=== PATIENT | male | born 1965 | race Caucasian/White ===

== ENCOUNTER → 2024-05-03 06:25 | Outpatient (REF) | payer OTHER, SELFPAY ==
[2024-05-03 07:35] LABS: % Eosinophils 6.1 % (0-6); % Immature Granulocytes 0.6 % (0-0.5); % Lymphocytes 25.6 % (20.5-51.1); % Neutrophils 50.7 % (42.2-75.2); Absolute Basophils 0.1 10^3/uL (0-0.2); Absolute Eosinophils 0.3 10^3/uL (0-0.7); Absolute Lymphocytes 1.3 10^3/uL (1.2-3.4); Absolute Monocytes 0.8 10^3/uL (0.1-0.6); Absolute Neutrophils 2.5 10^3/uL (1.4-6.5); Hematocrit 52.2 % (39.0-52.0); Hemoglobin 17.5 g/dL (13.0-18.0); Mean Corp Hgb Conc. 33.5 g/dL (33.0-37.0); Mean Corpuscular Hgb 30.1 pg (27.0-31.0); Mean Corpuscular Volume 89.8 fL (80.0-94.0); Mean Platelet Volume 9.6 fL (7.4-10.4); Nucleated Red Blood Cells % 0 % (-); Platelet Count 193 10^3/uL (130-400); Red Blood Cell Count 5.81 10^6/uL (4.70-6.10); Red Cell Dist. Width 12.3 % (11.5-14.5); White Blood Cell Count 4.9 10^3/uL (4.8-10.8)
[2024-05-03 08:10] LABS: ALT (SGPT) 50 U/L (0-50); AST (SGOT) 34 U/L (17-59); Albumin 4.4 g/dl (3.5-5.0); Alkaline Phosphatase 60 U/L (38-126); Blood Urea Nitrogen 23 mg/dl (9-20); Calcium 9.7 mg/dl (8.4-10.2); Carbon Dioxide 31 mmol/L (22-30); Chloride 99 mmol/L (98-107); Glucose 85 mg/dl (70-99); HDL Cholesterol 38 mg/dl; LDL Cholesterol, Calculated 160 mg/dl; Potassium 4.8 mmol/L (3.5-5.1); Sodium 141 mmol/L (135-145); Total Bilirubin 0.7 mg/dl (0.2-1.3); Total Cholesterol 227 mg/dl (50-199); Total Protein 7.3 g/dl (6.3-8.2); Triglyceride 149 mg/dl (10-149); Very Low Density Lipoprotein 29 mg/dl (0-30); eGFR > 60.00
[2024-05-03 08:30] LABS: TSH Reflex To Free T4 2.25 uIU/ml (0.47-4.68)
[2024-05-03 20:58] LABS: Hepatitis C Antibody Negative (Negative)
== END ==
LOC: REG 06:25
PROVIDERS: ATTENDING PHYSICIAN Family Medicine
DX: Z00.00 Encounter for general adult medical examination without abnormal findings (principal); E78.9 Disorder of lipoprotein metabolism, unspecified; E03.9 Hypothyroidism, unspecified
CPT/HCPCS: 36415; 80053; 80061; 84443; 85025; 86803

== ENCOUNTER 2024-05-05 10:25 | Emergency (ER) | payer OTHER, SELFPAY ==
[2024-05-05 10:50] VITALS: BP 188/76
[2024-05-05 11:09] VITALS: BMI 30.6
[2024-05-05 11:13] VITALS: BP 98/71
[2024-05-05 11:31] LABS: % Basophils 0.7 % (0-2); % Immature Granulocytes 0.4 % (0-0.5); % Lymphocytes 16.1 % (20.5-51.1); % Monocytes 12.4 % (1.7-9.3); % Neutrophils 65.4 % (42.2-75.2); Absolute Basophils 0.1 10^3/uL (0-0.2); Absolute Eosinophils 0.4 10^3/uL (0-0.7); Absolute Lymphocytes 1.2 10^3/uL (1.2-3.4); Absolute Monocytes 0.9 10^3/uL (0.1-0.6); Hematocrit 51.9 % (39.0-52.0); Hemoglobin 18.2 g/dL (13.0-18.0); Mean Corp Hgb Conc. 35.1 g/dL (33.0-37.0); Mean Corpuscular Hgb 30.5 pg (27.0-31.0); Mean Corpuscular Volume 86.9 fL (80.0-94.0); Mean Platelet Volume 9.5 fL (7.4-10.4); Nucleated Red Blood Cells % 0 % (-); Platelet Count 202 10^3/uL (130-400); Red Blood Cell Count 5.97 10^6/uL (4.70-6.10); Red Cell Dist. Width 12.3 % (11.5-14.5); White Blood Cell Count 7.6 10^3/uL (4.8-10.8)
[2024-05-05 11:52] LABS: Troponin I < 0.012 ng/ml
--- NOTE | 2024-05-05 11:56 | ED.GENMED ---
History of Present Illness
General
Chief Complaint: Fainting Sensation
Source: patient
Time Seen by Provider: 05/05/24 11:43
History of Present Illness
History of Present Illness:
58-year-old gentleman presents to the emergency room complaining of of having a near syncopal episode. Patient was at an urgent care where an injury to his left finger was being addressed. They were gluing his finger and during that procedure he
began to feel lightheaded and as if he might pass out. Patient did not lose consciousness. Staff at urgent care sent him to the emergency room for evaluation because he also has a history of atrial fibrillation and recently has been back in A-fib.
Patient is followed by Dr. Soria. Dr. Soria started the patient on carvedilol and Eliquis. Plan is for cardiology follows up in the near future for possible ELVA and cardioversion. Patient does have a implanted defibrillator because he had
cardiomyopathy in the past secondary to uncontrolled A-fib.
Past History
Past History
ED Past Medical History: Arrthythmia (Atrial fib), CHF, Other (Nonischemic cardiomyopathy) and Other (History of atrial fibrillation and ventricular tachycardia); Negative CAD
ED Past Surgical History: Cardiac (/pacer/Defibulator)
Social History
Tobacco: Smoker (Cigar)
Alcohol: Occasional
Drug: None
Personal:
Living: with family
Employment: Employed
Family History
Family History: Hypertension
Phy Exam
Physical Exam
Physical Exam:
General: Awake, Alert, Oriented X3. No acute distress.
Vitals: Mildly tachycardic
Head: Atraumatic
Eyes: Pupils equal, EOMI
Throat: Airway intact, no exudates
Neck: Trachea midline
Lungs: Clear and equal b/l
Heart: irregular rate, no murmurs
Abd: Soft, Nontender, No pulsatile mass
Neuro: Nonfocal
Skin: Warm, dry, no rash
Extremities: pulses equal b/l, no edema
Course
Orders/Labs/Results
Orders:
Orders
05/05/24 10:54
ECG [Electrocardiogram (*1)] Urgent
Reason for Study: Atrial Fibrillation
EKG- Treatment ONCE
05/05/24 11:20
Complete Blood Count/With Diff Urgent
Troponin I Urgent
05/05/24 12:03
BMP [Basic Metabolic Panel] Urgent
Abnormal Lab Results
05/05/24
11:20
Hgb 18.2 H g/dL
(13.0-18.0)
Absolute Monos (auto) 0.9 H 10^3/uL
(0.1-0.6)
Lymphocytes % 16.1 L %
(20.5-51.1)
Monocytes % 12.4 H %
(1.7-9.3)
05/05/24 11:20
05/05/24 12:03
Vital Signs
Initial and Last Documented VS:
Initial Vital Signs
Temp Pulse Resp BP Pulse Ox
98.0 F 63 20 188/76 97
05/05/24 10:50 05/05/24 10:50 05/05/24 10:50 05/05/24 10:50 05/05/24 10:50
Last Documented Vital Signs
Temp Pulse Resp BP Pulse Ox
98.0 F 116 13 110/89 97
05/05/24 10:50 05/05/24 13:54 05/05/24 13:54 05/05/24 13:54 05/05/24 13:54
MDM/Problems Addressed
Differential Diagnosis Includes:
Dysrhythmia, vasovagal event, anemia
MDM/Problems Addressed:
Patient presents after an episode at urgent care while holding his finger dairy. His labs are unremarkable. Patient's EKG shows no acute ischemic changes. We interrogated his defibrillator which shows nonsustained V. tach but no dysrhythmias
requiring treatment. Patient already has an appointment with cardiology has he is currently in A-fib. Patient is known to Dr. Soria. Patient's ventricular rate is well-controlled. Believe the A-fib was likely related to his episode today as
the contact seems highly suggestive of a vasovagal event.
*Pulse Oximetry
Patient hypoxic: no
*EKG
Interpreted by ED Provider?: Yes
Interpretation: abnormal
Heart Rate: 95
Rate: normal
Rhythm: a-fib
QRS Pattern: normal QRS
Ischemia: no ischemia
*Assembly Adjuster Interpretation
Rate: normal
Interpretation: abnormal
Rhythm: a-fib
*Critical Care Note
Total Time (30-74mins, 75-104mins- exclusive of procedures): Not Applicable
ED Attending Note
-
Portions of this chart may have been created with voice recognition software.� Occasional wrong word or��sound alike� substitutions may have occurred due to the inherent limitations of voice recognition software.
Discharge Plan
Departure
Patient Disposition: Home (Routine Discharge)
Date of Disposition: 05/05/24
Time of Disposition: 13:57
Patient with high blood pressure during this ER visit?: No
Condition: Good
Discharge Problem:
Near syncope
Instructions: Near Fainting (DC)
Prescriptions:
No Action
carvedilol 12.5 MG tablet
12.5 mg PO BID
lisinopril 2.5 MG tablet
2.5 mg PO DAILY
aspirin [Gaurav Chewable Aspirin] 81 MG tablet,chewable
81 mg PO DAILY
prednisone 10 MG tablet
10 mg PO .TAPER Qty: 30 0RF
Rx Instructions:
Take 40mg daily x3days, 30mg daily x3days,
20mg daily x3days, 10mg daily x3days.
diazepam 5 MG tablet
5 mg PO TIDPRN PRN (Reason: spasm pain) Qty: 15 0RF
amiodarone [Pacerone] 200 MG tablet
200 mg PO BID Qty: 60 0RF
Rx Instructions:
FILL FIRST. Please take amiodarone 200mg twice daily for 30 days then decrease to 200mg daily!
amiodarone [Pacerone] 200 MG tablet
200 mg PO DAILY Qty: 30 3RF
Rx Instructions:
FILL SECOND. Please take amiodarone 200mg twice daily for 30 days then decrease to 200mg daily!
Referrals:
Shan Sanders MD [Family Provider] -
Activity Restrictions/Additional Instructions:
Your vital signs here in the emergent have been normal. Your labs are unremarkable. The interrogation of your device shows no serious heart rhythm cause your event today. However the device does show that you have a fair amount of extra
ventricular beats. There may be nothing to do about this but you should follow-up with your stock clipper as scheduled to discuss.
Interventions
Interventions:
*Risk Screen - Suicide Last Done: 05/05/24 11:09
*General Assessment Last Done: 05/05/24 10:50
*Neglect/Abuse Screening Last Done: 05/05/24 11:09
ED- Fall Risk Assessment Last Done: 05/05/24 11:09
*ED COVID-19 Vaccine History Last Done: 05/05/24 11:09
*Nursing Disposition Last Done: 05/05/24 14:10
ED- Cardiac Assessment Last Done: 05/05/24 11:09
ED- Neurological Assessment Last Done: 05/05/24 11:09
Discharge Date and Time
Discharge Date/Time: 05/05/24 14:11
Print Language: KHMER
[2024-05-05 12:30] VITALS: BP 109/78
[2024-05-05 12:53] LABS: Blood Urea Nitrogen 19 mg/dl (9-20); Calcium 9.7 mg/dl (8.4-10.2); Carbon Dioxide 26 mmol/L (22-30); Chloride 102 mmol/L (98-107); Estimated Creatinine Clearance 101 ml/min; Glucose 99 mg/dl (70-99); Sodium 136 mmol/L (135-145); eGFR > 60.00
[2024-05-05 13:00] VITALS: BP 113/87
[2024-05-05 13:54] VITALS: BP 110/89
== END 2024-05-05 14:11 | disposition home or self-care (01) ==
LOC: EMR 10:25
PROVIDERS: EMERGENCY PHYSICIAN Emergency Medicine; FAMILY PHYSICIAN Family Medicine
DX: R55 Syncope and collapse (principal); I48.91 Unspecified atrial fibrillation; I50.9 Heart failure, unspecified; Z95.810 Presence of automatic (implantable) cardiac defibrillator; F17.290 Nicotine dependence, other tobacco product, uncomplicated; I42.8 Other cardiomyopathies; Z79.01 Long term (current) use of anticoagulants
CPT/HCPCS: 99284; 80048; 84484; 85025; 93005

== ENCOUNTER 2024-05-08 07:49 | Day surgery (SDC) | payer OTHER, SELFPAY ==
--- NOTE | 2024-05-08 09:35 | ITS.CL.CARDI ---
Religion Professor - Cardioversion
Cardioversion
Procedure Report:
Date of Procedure: May 08 2024
Procedure: Cardioversion
Indication: Symptomatic atrial fibrillation
Performing Physician: Jose Denis DO, FACC
Technique: The patient was brought to the holding area. Signed informed consent was obtained. A time out was called and performed. The patient was anesthetized by the anesthesia service. Anticoagulation status was reviewed and appropriate. R2 pads
were placed anteriorly and posteriorly. A 225 J synchronized biphasic shock restored normal sinus rhythm without significant bradycardia. There were no complications. Device interrogated post cardioversion with normal function of the device.
Conclusion: Uncomplicated cardioversion from atrial fibrillation to sinus rhythm.
Recommendation: Routine post cardioversion care. Continue buttermaker anticoagulation.
== END 2024-05-08 10:11 | disposition home or self-care (01) ==
LOC: CATH 07:49
PROVIDERS: ATTENDING PHYSICIAN Nuclear Medicine Nuclear Cardiology; FAMILY PHYSICIAN Family Medicine; OTHER PHYSICIAN Internal Medicine Cardiovascular Disease
DX: I48.91 Unspecified atrial fibrillation (principal); I50.9 Heart failure, unspecified; I42.8 Other cardiomyopathies; Z72.0 Tobacco use; Z79.82 Long term (current) use of aspirin; Z79.01 Long term (current) use of anticoagulants
CPT/HCPCS: 92960; 93005

== ENCOUNTER 2024-08-17 10:18 | Day surgery (SDC) | payer OTHER, SELFPAY ==
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
[2024-08-13 09:19] VITALS: BMI 30.2
[2024-08-13 09:48] LABS: % Basophils 0.6 % (0-2); % Eosinophils 2.7 % (0-6); % Immature Granulocytes 0.4 % (0-0.5); % Monocytes 10.7 % (1.7-9.3); % Neutrophils 68.6 % (42.2-75.2); Absolute Basophils 0.1 10^3/uL (0-0.2); Absolute Eosinophils 0.2 10^3/uL (0-0.7); Absolute Lymphocytes 1.3 10^3/uL (1.2-3.4); Absolute Monocytes 0.8 10^3/uL (0.1-0.6); Absolute Neutrophils 5.3 10^3/uL (1.4-6.5); Hematocrit 52.6 % (39.0-52.0); Mean Corp Hgb Conc. 34.2 g/dL (33.0-37.0); Mean Corpuscular Hgb 31.4 pg (27.0-31.0); Mean Corpuscular Volume 91.8 fL (80.0-94.0); Mean Platelet Volume 9.4 fL (7.4-10.4); Nucleated Red Blood Cells % 0 % (-); Platelet Count 179 10^3/uL (130-400); Red Blood Cell Count 5.73 10^6/uL (4.70-6.10); White Blood Cell Count 7.8 10^3/uL (4.8-10.8)
[2024-08-13 10:14] LABS: ALT (SGPT) 41 U/L (0-50); AST (SGOT) 31 U/L (17-59); Albumin 4.4 g/dl (3.5-5.0); Alkaline Phosphatase 73 U/L (38-126); Blood Urea Nitrogen 21 mg/dl (9-20); Calcium 9.8 mg/dl (8.4-10.2); Carbon Dioxide 33 mmol/L (22-30); Chloride 96 mmol/L (98-107); Estimated Creatinine Clearance 91 ml/min; Glucose 85 mg/dl (70-99); Potassium 4.8 mmol/L (3.5-5.1); Sodium 137 mmol/L (135-145); Total Bilirubin 0.7 mg/dl (0.2-1.3); Total Protein 7.7 g/dl (6.3-8.2); eGFR > 60.00
[2024-08-17] VITALS (7 sets, daily range): BP systolic 116–136; BP diastolic 79–96; BMI 30.1
--- NOTE | 2024-08-17 11:10 | W.ICD.CONTRA ---
Post ICD/TAKER OFF DRYING KILN-D
-
History of OR?: No
LV Function
Left ventricular function study result?: Ejection Fraction >/= 40%
ACEI/ARB/ARNI
Patient already on ACEI/ARB/ARNI: Yes
Beta-Tammi
Patient already on Beta Tammi: Yes
--- NOTE | 2024-08-17 14:07 | ITS.CL.ICD ---
Longitudinal Float Operator - ICD
Implantable Cardioverter Defibrillator
Procedure Report:
Date of Procedure: August 17, 2024
Patient : 1965
Procedures: Dual-chamber ICD generator change
Indication: Secondary prevention device in a patient with sustained ventricular tachycardia at initial implant
Implants:
Pulse Generator: [employer]; Model# D233; Serial#[id number] implanted today
Atrial Lead: [employer]: Model# 4469; Serial# [id number] implanted 2011
Right Ventricular Lead: [employer]; Model# 0296; Serial# [id number] implanted 2011
Explants:
[employer] model E162 serial #[id number] implanted 2011 for normal battery depletion
Technique: The patient was prepped and draped in the usual fashion. The patient since implant got tattoos around the device circumferentially and we discussed performing an incision in the central area that did not have skin tattoos. Local
anesthetic was applied to the left prepectoral subcutaneous tissue. A 4 inch incision was made. The subcutaneous pocket was entered and revised to see the device more inferiorly and laterally.. Hemostasis was excellent. The chronic generator was
identified and removed from the pocket and disconnected from the chronic leads and removed from the field. The new generator was brought to the field and connected to the chronic leads and was tied to the pectoral floor of the pocket.. The leads
were appropriately attached to the device. The pocket was irrigated with antibiotic solution. The device and leads were placed in the pocket and the device was secured to pectoralis muscle and facia. The incision was closed with absorbable sutures.
The estimated blood loss was minimal. There were no complications. Device based testing was performed as described below. IV contrast total: 0 cc.
System Analysis:
RA lead: P: 5.4 mV; Threshold: 0.7 V @ 0.5 ms; Impedance: 486 ohms.
RV lead: R: 16.9 mV; Threshold: 1.1 V @ 0.5 ms; Impedance: 426 ohms.
Final Programming: Tachy: VT/VF:185 in the monitor at 155 bpm; Ryan: AAI with VVI backup 40
Conclusion: Uncomplicated dual-chamber ICD generator change
Recommendation: Routine post ICD care
cc: Dr. Thomas Torres
== END 2024-08-17 15:10 | disposition home or self-care (01) ==
LOC: CATH 10:18
PROVIDERS: ATTENDING PHYSICIAN Internal Medicine Cardiovascular Disease; FAMILY PHYSICIAN Family Medicine
DX: Z45.02 Encounter for adjustment and management of automatic implantable cardiac defibrillator (principal); I47.20 Ventricular tachycardia, unspecified; I48.0 Paroxysmal atrial fibrillation; I47.19 Other supraventricular tachycardia; I07.1 Rheumatic tricuspid insufficiency; I42.9 Cardiomyopathy, unspecified; M19.90 Unspecified osteoarthritis, unspecified site; F41.9 Anxiety disorder, unspecified; G47.00 Insomnia, unspecified; Z68.30 Body mass index [BMI] 30.0-30.9, adult
CPT/HCPCS: 33263; 36415; 80053; 85025; 93005; C1721

== ENCOUNTER → 2024-09-22 07:44 | Outpatient (REF) | payer OTHER, SELFPAY ==
[2024-09-22 08:43] LABS: % Eosinophils 6.9 % (0-6); % Lymphocytes 27.8 % (20.5-51.1); % Monocytes 15.4 % (1.7-9.3); % Neutrophils 47.9 % (42.2-75.2); Absolute Basophils 0.1 10^3/uL (0-0.2); Absolute Eosinophils 0.4 10^3/uL (0-0.7); Absolute Immature Granulocytes 0.1 10^3/uL (0-0.05); Absolute Lymphocytes 1.4 10^3/uL (1.2-3.4); Absolute Monocytes 0.8 10^3/uL (0.1-0.6); Absolute Neutrophils 2.4 10^3/uL (1.4-6.5); Hemoglobin 17.3 g/dL (13.0-18.0); Mean Corp Hgb Conc. 34.6 g/dL (33.0-37.0); Mean Corpuscular Hgb 31.5 pg (27.0-31.0); Mean Corpuscular Volume 91.1 fL (80.0-94.0); Mean Platelet Volume 9.5 fL (7.4-10.4); Nucleated Red Blood Cells % 0 % (-); Platelet Count 181 10^3/uL (130-400); Red Blood Cell Count 5.49 10^6/uL (4.70-6.10); Red Cell Dist. Width 12.9 % (11.5-14.5); Reticulocyte Count 1.7 % (0.4-2.8); White Blood Cell Count 5.1 10^3/uL (4.8-10.8)
[2024-09-22 09:08] LABS: ALT (SGPT) 47 U/L (0-50); AST (SGOT) 34 U/L (17-59); Albumin 4.6 g/dl (3.5-5.0); Alkaline Phosphatase 74 U/L (38-126); Blood Urea Nitrogen 30 mg/dl (9-20); Calcium 9.6 mg/dl (8.4-10.2); Carbon Dioxide 30 mmol/L (22-30); Chloride 99 mmol/L (98-107); Glucose 85 mg/dl (70-99); Magnesium 2.1 mg/dl (1.6-2.3); Potassium 5.1 mmol/L (3.5-5.1); Sodium 136 mmol/L (135-145); Total Bilirubin 0.9 mg/dl (0.2-1.3); Total Protein 7.5 g/dl (6.3-8.2); eGFR > 60.00
[2024-09-22 09:17] LABS: Total Iron Binding Capacity 300 ug/dl (261-462)
[2024-09-22 09:18] LABS: Vitamin D, 25-OH*** 66.5 ng/mL (30-80)
[2024-09-22 09:32] LABS: TSH Reflex To Free T4 2.35 uIU/ml (0.47-4.68)
[2024-09-22 10:08] LABS: Folate 18.6 ng/ml (2.76-20); Vitamin B12 > 1000 pg/ml (239-931)
== END ==
LOC: REG 07:44
PROVIDERS: ATTENDING PHYSICIAN Nurse Practitioner Primary Care; FAMILY PHYSICIAN Family Medicine
DX: R53.83 Other fatigue (principal)
CPT/HCPCS: 36415; 80053; 82306; 82607; 82728; 82746; 83550; 83735; 84443; 85025; 85045

== ENCOUNTER 2024-11-16 06:20 | Day surgery (SDC) | payer OTHER, SELFPAY | END 2024-11-16 09:48 | disposition home or self-care (01) | LOC: GI 06:20 | PROVIDERS: ATTENDING PHYSICIAN Student in an Organized Health Care Education/Training Program | DX: K57.32 Diverticulitis of large intestine without perforation or abscess without bleeding (principal); R59.0 Localized enlarged lymph nodes; K64.0 First degree hemorrhoids; K64.4 Residual hemorrhoidal skin tags; K57.30 Diverticulosis of large intestine without perforation or abscess without bleeding; K63.5 Polyp of colon | CPT/HCPCS: 45380; 88305 ==

== ENCOUNTER 2025-04-01 14:46 | Inpatient (IN) | payer OTHER, SELFPAY ==
[2025-04-01] VITALS (18 sets, daily range): BP systolic 94–143; BP diastolic 61–101; BMI 30.8
[2025-04-01 12:33] LABS: Hematocrit 53.8 % (39.0-52.0); Hemoglobin 18.5 g/dL (13.0-18.0); Mean Corp Hgb Conc. 34.4 g/dL (33.0-37.0); Mean Corpuscular Volume 90.3 fL (80.0-94.0); Nucleated Red Blood Cells % 0 % (-); Platelet Count 201 10^3/uL (130-400); Red Cell Dist. Width 12.6 % (11.5-14.5)
[2025-04-01 12:45] LABS: ALT (SGPT) 44 U/L (0-50); AST (SGOT) 30 U/L (17-59); Albumin 4.2 g/dl (3.5-5.0); Alkaline Phosphatase 52 U/L (38-126); Blood Urea Nitrogen 23 mg/dl (9-20); Calcium 9.4 mg/dl (8.4-10.2); Carbon Dioxide 28 mmol/L (22-30); Chloride 104 mmol/L (98-107); Glucose 116 mg/dl (70-99); Potassium 4.4 mmol/L (3.5-5.1); Sodium 138 mmol/L (135-145); Total Protein 7.1 g/dl (6.3-8.2); eGFR > 60.00
--- NOTE | 2025-04-01 13:07 | ED.GENMED ---
Addendum entered and electronically signed by Cesar Dorado, 04/01/25 20:18:
SUMMARY OF ENCOUNTER
The patient, a 59-year-old male, presented to the emergency department with heart palpitations. The past medical history is significant for atrial fibrillation, managed with a pacemaker and defibrillator. Upon evaluation, the patient was found to
have atrial fibrillation with a rapid ventricular response. Management included initiation of a sotalol drip. An echocardiogram and cardiology evaluation are planned for further assessment.
DISPOSITION
Admit to hospitalists for atrial fibrillation management.
ASSESSMENT
The patient is experiencing atrial fibrillation with a rapid ventricular response, requiring hospital admission for further management and stabilization.
PLAN
Initiate sotalol drip for rhythm control. Further evaluation and management by cardiology, including echocardiogram, are planned during the hospital stay.
MANAGEMENT OF THE PATIENTS CARE WAS DISCUSSED WITH
Case discussed with hospitalists.
DIAGNOSIS
- Atrial fibrillation with rapid ventricular response (I48.0)
Original Note:
History of Present Illness
General
Chief Complaint: Heart Rate Problem
Source: patient
Exam Limitations: none
Time Seen by Provider: 04/01/25 12:36
Nursing documentation reviewed up to this point in time: agreed with
History of Present Illness
History of Present Illness:
Note:
CHIEF COMPLAINT(S)
Heart palpitations.
HISTORY OF PRESENT ILLNESS
The patient is a 59-year-old male who reports experiencing episodes of heart palpitations. These episodes typically last seconds to a minute and began Tuesday. The patient was not engaging in any particular activity at the onset; he had
just awakened. Over the years, the patient has noticed these palpitations tend to occur after consuming alcohol. The patient consumed alcohol the previous Tuesday night but typically only drinks alcohol infrequently and hydrates regularly with water,
usually consuming over a gallon daily.
The patients past medical history is significant for atrial fibrillation, for which he received a pacemaker and defibrillator approximately 14 years ago. He recounts that at that time, his heart rate was approximately 150 beats per minute for three
consecutive days, and he was found to have an ejection fraction of 11%. The ejection fraction has since improved.
The patient had previously been on the anticoagulant Eliquis (apixaban), which was discontinued on his cardiologists recommendation after echocardiographic assessment.
CHRONIC MEDICAL CONDITIONS SIGNIFICANTLY AFFECTING CARE
The patient has a history of atrial fibrillation and previously had a significantly reduced ejection fraction, requiring the implantation of a pacemaker and defibrillator.
SOCIAL DETERMINANTS AFFECTING HEALTH
The patient occasionally consumes alcohol, predominantly during social events, which correlates with the onset of palpitations, and regularly consumes a significant amount of water.
SOCIAL HISTORY
Occasional alcohol consumption, mainly during social events; regular hydration with over a gallon of water daily.
REVIEW OF SYSTEMS
- Cardiovascular: Reports episodes of heart palpitations and history of atrial fibrillation.
- General: Denies recent feeling of sickness.
PHYSICAL EXAM
General: Alert, no acute distress.
Skin: Warm, dry.
Head: Normocephalic, atraumatic.
Neck: Supple, trachea midline.
Eye Ears, nose, mouth and throat: Oral mucosa moist.
Cardiovascular: Normal peripheral perfusion, no edema. tachycardia, pacemaker
Respiratory: Respirations are non-labored.
Gastrointestinal: Abdomen nondistended.
Back: Normal range of motion, normal alignment.
Musculoskeletal: Normal ROM, normal strength.
Neurological: Alert and oriented to person, place, time, and situation, no focal neurological deficit observed.
Psychiatric: Cooperative, appropriate mood and affect.
PROBLEM LIST
Acute:
1. Heart palpitations.
Chronic:
1. Atrial fibrillation with historical low ejection fraction.
PLAN
Monitoring for episodes of heart palpitations is advised, and the patient should be mindful of alcohol consumption given its correlation with palpitations. Follow up with a plastic products sales representative for further assessment and management of the pacemaker and
defibrillator function.
DIFFERENTIAL DIAGNOSIS
The Differential Diagnosis includes, in no particular order and is not limited to:
1. Atrial Fibrillation relapse
2. Supraventricular Tachycardia
3. Alcohol-induced Arrhythmia
4. Premature Ventricular Contractions
5. Premature Atrial Contractions
6. Thyrotoxicosis
7. Anxiety-induced Palpitations
8. Electrolyte Imbalance
9. Heart Failure
10. Coronary Artery Disease
Past History
Past History
ED Past Medical History: Arrthythmia (Atrial fib), CHF, Other (Nonischemic cardiomyopathy) and Other (History of atrial fibrillation and ventricular tachycardia); Negative CAD
ED Past Surgical History: Cardiac (/pacer/Defibulator)
Social History
Tobacco: Smoker (Cigar)
Alcohol: Occasional
Drug: None
Personal:
Living: with family
Employment: Employed
Family History
Family History: Hypertension
Phy Exam
Physical Exam
Physical Exam:
.
Course
Orders/Labs/Results
Orders:
Orders
04/01/25 11:23
EKG [Electrocardiogram (*1)] Urgent
Reason for Study: Palpitations
EKG- Treatment ONCE
04/01/25 12:13
Complete Blood Count/With Diff Urgent
Comprehensive Metabolic Panel Urgent
04/01/25 12:54
Interrogate Pacemaker- Treatment ONCE
04/01/25 13:09
Diltiazem 125 mg/125 ml Nss [Cardizem] 125 mg in 125 ml IV NOW
Initial dose in mg/hr, then titrate:: 10
Titrate to keep:: Heart rate 80-100 bpm
Titrate by mg/hr:: 5 mg/hr
Frequency of titrations (minutes):: 15
Maximum dose in mg/hr:: 15
Diltiazem HCl [Cardizem] 10 mg IV NOW STA
04/01/25 14:16
Admit/Transfer Patient As Directed
Co-Sign Provider:
Level of Care: Inpatient admission
Assign to:: IVU
Physician / Group: andre
Diagnosis: atrial fib with rvr
Reason for Hospitalization: atrial fib with rvr
Expected length of stay greater than two midnights?: Yes
ELOS- Estimated Length of Stay in days: 3
I certify the patient meets the requirements for IP care: Yes
04/01/25 14:17
PRN Pain Medication Management As Directed
May give lesser potent ordered pain med per pt: Yes
preference::
Protocol:: Medication orders for pain may be administered in a
manner that supports deferring to patient preference
when the pt is:
- Requesting an ordered lesser potent pain medication.
Least to most potent pain medications are defined
as: acetaminophen < NSAID < tramadol < opioids
(morphine, oxycodone, hydromorphone).
- Requesting a lesser dose of the same medication IF
ORDERED.
- Requesting a less intrusive route of administration
if both routes are prescribed by the provider (PO <
IV).
04/01/25 14:18
Code Status As Directed
Resuscitation Status: Full Code
04/01/25 14:24
Add On- LAB Stat
Tests Added?: tsh t4
Abnormal Lab Results
04/01/25
12:13
Hgb 18.5 H g/dL
(13.0-18.0)
Hct 53.8 H %
(39.0-52.0)
Absolute Eos (auto) 0.9 H 10^3/uL
(0-0.7)
Immature Gran % 0.6 H %
(0-0.5)
Eosinophils % 12.3 H %
(0-6)
BUN 23 H mg/dl
(9-20)
Glucose 116 H mg/dl
(70-99)
04/01/25 12:13
04/01/25 12:13
Vital Signs
Initial and Last Documented VS:
Initial Vital Signs
Temp Pulse Resp BP Pulse Ox
97.6 F 101 18 118/94 100
04/01/25 11:26 04/01/25 11:26 04/01/25 11:26 04/01/25 11:26 04/01/25 11:26
Last Documented Vital Signs
Temp Pulse Resp BP Pulse Ox
98.0 F 103 17 101/62 97
04/01/25 15:08 04/01/25 14:30 04/01/25 14:30 04/01/25 14:30 04/01/25 14:30
*Pulse Oximetry
SaO2: 100
Oxygen Mode of Delivery: Room air
Patient hypoxic: no
*Critical Care Note
Total Time (30-74mins, 75-104mins- exclusive of procedures): 32
comment:
Critical care statement: A total of 32 minutes of critical care time was provided for this patient. This includes management of unstable vital signs, evaluation of the patient at bedside, reviewing the patient's pertinent medical records, discussion
with consultants, review of old EKGs and review of pertinent medical records. This time with separate from time utilized to perform the aforementioned documented procedures
ED Attending Note
-
Portions of this chart may have been created with voice recognition software.� Occasional wrong word or��sound alike� substitutions may have occurred due to the inherent limitations of voice recognition software.
Discharge Plan
Departure
Patient Disposition: Admit
Date of Disposition: 04/01/25
Time of Disposition: 14:10
Admit to: IVU
Presentation/result/management discussed w/ accepting MD/DO: Hospitalist
Patient with high blood pressure during this ER visit?: No
Condition: Fair
Discharge Problem:
Atrial flutter with rapid ventricular response
Interventions
Interventions:
*Risk Screen - Suicide Last Done: 04/01/25 11:26
*General Assessment Last Done: 04/01/25 12:00
*Neglect/Abuse Screening Last Done: 04/01/25 12:00
ED- Cardiac Assessment Last Done: 04/01/25 12:00
ED- Pulmonary Assessment Last Done: 04/01/25 12:00
[2025-04-01] MEDS: CARDIZEM 125 IV ×2 (13:32→21:49)
[2025-04-01] MEDS: CARDIZEM 10 MG IV (13:32)
--- NOTE | 2025-04-01 14:23 | HPS.HSE ---
Family Physician
-
Family Physician: Shan Sanders
Chief Complaint
-
palpitations
History of Present Illness
59 y/o M, hx of A. Fib, HTN, s/p PPM/ICD presenting to ER with palpitations. Patient experienced them Tuesday morning, after some alcohol consumption the night prior. Patient reports Alcohol is a trigger for his A. Fib usually. Palpitations were
present upon waking up. He reports palpitations were intermittent and went about his day/weekend including playing golf yesterday. He reports that the palpitations became increasingly consistent and today felt some fatigue prompting ER eval. At
present denies any complaints. He was noted to be in Rapid A. Fib and IV Cardizem drip was started. Cardiology consulted.
Medical History
Past Medical History
Past Medical History: Reports Other (A. Fib, HTN, s/p PPM/ICD)
Past Surgical History: Reports Cardiac (PPM/ICD)
Social History
Tobacco: Smoker
Alcohol: Occasional
Drug: None
Personal:
Living: With Family
Employment: Employed
Family History
Family History: Not pertinent
Allergies / Home Medications
Allergies reflects when Allergies were last updated in [facility].
Home Medications with original date entered in [facility]
Allergy/Medication List:
Allergies
Allergy/AdvReac Type Severity Reaction Status Date / Time
No Known Allergies Allergy Verified 04/01/25 11:25
Home Medications
lisinopril 10 mg tablet 10 mg PO DAILY 05/08/24
milk thistle 150 mg capsule 300 mg PO DAILY 05/08/24
zolpidem 12.5 mg tablet,extended release,multiphase 12.5 mg PO HS 05/08/24
magnesium oxide 400 mg PO DAILY 08/17/24
arginine 1,000 mg-B12 16.6 mcg-folic acid 66.6 mcg-B6 3.3 mg tablet (L-Arginine [employer]) 1 tab PO DAILY 04/01/25
carvedilol 12.5 mg tablet 12.5 mg PO BID 04/01/25
cyanocobalamin (vitamin B-12) 100 mcg tablet (Vitamin B-12) 100 mcg PO DAILYPRN PRN supplement 04/01/25
testosterone cypionate 200 mg/mL intramuscular oil 200 mg SC WEEKLY 04/01/25
therapeutic multivitamin 1 tab PO DAILY 04/01/25
Review of Systems
-
A 12 point ROS was completed and negative except as noted: Yes
Physical Exam
Vital Signs
Vital Signs
Temp Pulse Resp BP Pulse Ox
97.6 F 110 20 102/73 97
04/01/25 11:26 04/01/25 14:15 04/01/25 14:15 04/01/25 14:00 04/01/25 14:15
Physical Exam
General: No Apparent Distress
HEENT: NormoCephalic and Anicteric
Respiratory: Clear; No Wheezes or Rales
Cardiac: Irregular Rhythm
GI: Soft
Neuro: AO x 3
Psych: Calm
Laboratory Results
-
04/01/25 12:13
04/01/25 12:13
Laboratory Results
Total Bilirubin 0.6 mg/dl (0.2-1.3) 04/01/25 12:13
AST 30 U/L (17-59) 04/01/25 12:13
ALT 44 U/L (0-50) 04/01/25 12:13
Alkaline Phosphatase 52 U/L (38-126) 04/01/25 12:13
Data Reviewed
-
Medical Tests (Nuc Med, Echo, EKG etc): Report Reviewed by me and Discussed with Patient
Lab Data: Labs Reviewed by me and Discussed with Patient
Impression/Plan
-
Assessment:
Rapid A. Fib with RVR
Hx of Parox Afib with hx of PPM/ICD
- onset about 48 hours
- s/p IV Cardizem push in ER, now on drip
- continue oral Coreg
- now on anticoagulation at present; due to chronically low Afib burden previously
- Echo
- DCA cards consulted
Essential HTN
- hold MANUEL while on drip
DVT ppx: Lovenox
Code: Full
--- NOTE | 2025-04-01 15:40 | CON.CAR ---
Addendum entered and electronically signed by Syed Villasenor DO 04/01/25 17:22:
I saw and examined the patient.
The Wedger And Gluer's note was reviewed and I agree with the note.
Comment:
GENERAL: no acute distress
EYE: sclera anicteric
NECK: Supple, no JVD, no carotid bruit appreciated
ENT: normal nose, moist mucosal membranes
CARDIAC: Irregularly irregular, +S1/S2, no murmur, rubs, or gallops; left-sided CAD site well-healed
CHEST/PULMONARY: Normal effort, clear breath sounds
ABDOMEN: Soft, without focal tenderness or distention
NEUROLOGICAL: Alert and oriented x3
SKIN: Warm and dry, no rash
PSYCH: Normal and appropriate interaction.
Telemetry demonstrates atrial fibrillation with possible atrial flutter (possibly organized atrial fibrillation)
A/P as below
Impression:
Recurrent atrial fibrillation, symptomatic
- ECG demonstrates AF in [facility] ED
- [id number]: 1 (prior history of heart failure). Not on anticoagulation at this time
Atrial flutter, possible, symptomatic
- telemetry demonstrates organized activity, possible AFL
Dual-chamber ICD, [facility], gen change 07/2024
Ventricular tachycardia status post ablation (HUP)
Cardiomyopathy, recovered
Alcohol use/binge drinking
Previous cardiovascular testing:
Echo 10/18/2016: EF 45 to 50%, basal inferior lateral and basal inferior akinesis
Echo 10/04/2018: LVEF 50%, no regional wall motion abnormalities, normal RV, mild LVH, mild TR
Plan:
� Eliquis 5 mg twice daily for stroke risk reduction
� Wean Cardizem drip
� Continue carvedilol 12.5 mg twice daily
� Check TSH
� ELVA/DCCV in a.m.; patient's likely arrhythmias AF however by telemetry possible atrial flutter also noted
� Discussed at length with patient regarding importance of alcohol reduction, appropriate hydration, caffeine reduction, avoidance of all nicotine products and avoidance of smoking; patient verbalized understanding and agreed with this plan
� 2D echocardiogram previously ordered
� Continue MANUEL inhibitor for recovered cardiomyopathy
� Monitor intake and output, daily weights
� Will likely need sleep apnea testing as outpatient
Original Note:
Documented by User: SHAKILA Boyer 04/01/25 17:20
Consultation
Consultation Request
Date/Time Consultation Requested: 04/01/2025, 1430
Date/Time Consultation Performed: 04/01/2025, 1540
Requesting Provider: Dr. Holliday
Performing Provider: SHAKILA Boyer for Dr. Solis
Reason for Consultation: atrial flutter
Medical History
-
Chief Complaint: Palpitations
History of Present Illness:
59-year-old male with history of paroxysmal atrial fibrillation, recovered cardiomyopathy, ventricular tachycardia s/p ablation 2017, dual-chamber [employer] ICD, arthritis, presents to ED with atrial fibrillation. Pt woke up with
palpitations on 03/30/2025 with associated dizziness. He had been out the night before and drank 'quite a bit' at least 4-5 drinks. In the past he his atrial fibrillation has been associated with excessive alcohol intake. He started Eliquis on
03/30/2025 but only taking 5 mg once a day. He went golfing yesterday but felt lightheaded and stopped residential through his round. Device remotely interrogated through our office today and shows A-fib since 03/30/2025 at 5 AM. Presents to ED now for
further evaluation. Heart rate upon arrival in the 130s. Patient started on Cardizem drip 15 mg/hour with improvement in heart rates to 80s and rhythm showing atrial flutter with variable AV block.
Patient denies chest pain, shortness of breath,, edema, PND, orthopnea.
No change in functional capacity and continues to exercise regularly including weightlifting.
Past medical history:
-paroxysmal atrial fibrillation
- s/p cardioversion 04/2024
-A-fib associated with alcohol consumption 10/2020- 46 hr episode
-VT s/p VT ablation in 11/2016 at [facility] Dr [facility]-focal VT souce identified and ablated at right/left aortic cusp
-Dual-chamber ICD, initially placed in 2011 with generator change 08/17/2024. [employer] device
-recovered Cardiomyopathy, EF initially 20%, recovered to 50% on echo in 2019
- Arthritis, DJD, cervical
-Diverticulitis
Past Medical History
Past Medical History: Other (As above in HPI)
Past Surgical History: Other (Dual-chamber ICD, VT ablation)
Social History
Alcohol: Occasional (Social binge drinking)
Drug: Marijuana (Occasional medical marijuana)
Family History
Family History: Reviewed & Not Pertinent
Allergies / Home Medications
Allergy/AdvReac Type Severity Reaction Status Date / Time
No Known Allergies Allergy Verified 04/01/25 11:25
�Medication �Instructions �Recorded �Confirmed �Type
lisinopril 10 mg tablet 10 mg PO DAILY 05/08/24 04/01/25 History
milk thistle 150 mg capsule 300 mg PO DAILY 05/08/24 04/01/25 History
zolpidem 12.5 mg tablet,extended 12.5 mg PO HS 05/08/24 04/01/25 History
release,multiphase
magnesium oxide 400 mg PO DAILY 08/17/24 04/01/25 History
arginine 1,000 mg-B12 16.6 1 tab PO DAILY 04/01/25 04/01/25 History
mcg-folic acid 66.6 mcg-B6 3.3 mg
tablet (L-Arginine [employer])
carvedilol 12.5 mg tablet 12.5 mg PO BID 04/01/25 04/01/25 History
cyanocobalamin (vitamin B-12) 100 100 mcg PO DAILYPRN PRN supplement 04/01/25 04/01/25 History
mcg tablet (Vitamin B-12)
testosterone cypionate 200 mg/mL 200 mg SC WEEKLY 04/01/25 04/01/25 History
intramuscular oil
therapeutic multivitamin 1 tab PO DAILY 04/01/25 04/01/25 History
Review of Systems
-
History Source: Patient
All other systems: Negative unless noted
Physical Exam
Vital Signs
Temp Pulse Resp BP Pulse Ox
98.0 F 103 17 101/62 97
04/01/25 15:08 04/01/25 14:30 04/01/25 14:30 04/01/25 14:30 04/01/25 14:30
Lab Results
04/01/25 12:13
04/01/25 12:13
GEN: No distress, awake, Ox3
HEENT: supple, anicteric, mmm
LUNGS: CTA, no wheezes/rales
CV: Reg, S1/S2, no murmur
ABD: soft, BS+, NT/ND
EXT: No edema
NEURO: Gross non-focal
SKIN: No rash, many tattoos
Impression / Plan
-
PCP: Shan Sanders
Primary clearing inspector: Emiliano Soria
Impression:
Recurrent atrial fibrillation
Atrial flutter
Dual-chamber ICD
Ventricular tachycardia status post ablation
Cardiomyopathy, recovered
Alcohol use/binge drinking
Previous cardiovascular testing:
Echo 10/04/2018: LVEF 50%, no regional wall motion abnormalities, normal RV, mild LVH, mild TR
Echo 10/18/2016: EF 45 to 50%, basal inferior lateral and basal inferior akinesis
Plan:
59-year-old male with history of paroxysmal atrial fibrillation, recovered cardiomyopathy, ventricular tachycardia s/p ablation 2017, dual-chamber [employer] ICD, arthritis, presents to ED with atrial fibrillation with rapid ventricular
response of greater than 2 days duration following evening of excessive alcohol intake. Started Eliquis when he noted that he was in A-fib but only taking it once a day. Complains of lightheadedness and fatigue in A-fib. Started on Cardizem drip
and heart rates improved, telemetry monitoring showing atrial flutter.
-increase Eliquis to correct dose of 5 mg bid
-Wean Cardizem drip
-Continue Coreg 12.5 mg twice daily
-check TSH
-ELVA/cardioversion in a.m.
-NPO after MN
-Check updated echocardiogram
-Continue MANUEL/beta-heather for history of recovered cardiomyopathy
-[id number] 1, heart failure
Data Reviewed
-
EKG: Tracing Personally Visualized and interpreted
Labs: Labs Reviewed by me

Documented by User: Syed Villasenor, DO 04/01/25 17:19
Consultation
Consultation Request
Performing Provider: SHAKILA Boyer for Dr. Villasenor
Impression / Plan
-
PCP: Shan Sanders
Primary clearing inspector: Emiliano Soria
Impression:
Recurrent atrial fibrillation, symptomatic
- ECG demonstrates AF in [facility] ED
- [id number]: 1 (prior history of heart failure). Not on anticoagulation at this time
Atrial flutter, possible, symptomatic
- telemetry demonstrates organized activity, possible AFL
Dual-chamber ICD, BS, gen change 07/2024
Ventricular tachycardia status post ablation (HUP)
Cardiomyopathy, recovered
Alcohol use/binge drinking
Previous cardiovascular testing:
Echo 10/18/2016: EF 45 to 50%, basal inferior lateral and basal inferior akinesis
Echo 10/04/2018: LVEF 50%, no regional wall motion abnormalities, normal RV, mild LVH, mild TR
Plan:
� Eliquis 5 mg twice daily for stroke risk reduction
� Wean Cardizem drip
� Continue carvedilol 12.5 mg twice daily
� Check TSH
� ELVA/DCCV in a.m.; patient's likely arrhythmias AF however by telemetry possible atrial flutter also noted
� Discussed at length with patient regarding importance of alcohol reduction, appropriate hydration, caffeine reduction, avoidance of all nicotine products and avoidance of smoking; patient verbalized understanding and agreed with this plan
� 2D echocardiogram previously ordered
� Continue MANUEL inhibitor for recovered cardiomyopathy
� Monitor intake and output, daily weights
� Will likely need sleep apnea testing as outpatient
Data Reviewed
-
Radiology: Report Reviewed by me
Old Records: Reviewed
[2025-04-01] MEDS: LOVENOX 40 MG SC (16:44)
[2025-04-01 17:14] LABS: Magnesium 2.2 mg/dl (1.6-2.3)
[2025-04-01] MEDS: COREG 12.5 MG PO (20:17)
[2025-04-01] MEDS: TYLENOL 650 MG PO (20:22)
[2025-04-01] MEDS: AMBIEN 10 MG PO (21:49)
--- NOTE | 2025-04-01 23:45 | PTCARENOTE ---
Assumed care of patient at change of shift. Pt AAOx3, BP stable, and sating 95-97% RA. Tele monitor showed Afib and occasional Vpaced. Pt denies any chest discomfort or palpitations. Ambulates self in room w/out difficulty. Denies any dizziness. IV
Cardizem gtt currently infusing at 5mg/hr.
At approximately 22:02 pt spontaneously converted to NSR, HR in the 70-80s. Bhupendra DIRECTOR ELECTRONICS aware. Orders obtained/carried out for ekg which confirmed NSR. Pt aware of POC, call waterman within reach.
[2025-04-02 02:17] VITALS: BP 101/67
[2025-04-02 02:34] LABS: Hematocrit 49.4 % (39.0-52.0); Hemoglobin 16.9 g/dL (13.0-18.0); Mean Corp Hgb Conc. 34.2 g/dL (33.0-37.0); Mean Corpuscular Volume 90.6 fL (80.0-94.0); Platelet Count 167 10^3/uL (130-400); Red Cell Dist. Width 12.8 % (11.5-14.5)
[2025-04-02 03:01] LABS: Blood Urea Nitrogen 26 mg/dl (9-20); Calcium 9.0 mg/dl (8.4-10.2); Carbon Dioxide 29 mmol/L (22-30); Chloride 105 mmol/L (98-107); Estimated Creatinine Clearance 82 ml/min; Glucose 91 mg/dl (70-99); HDL Cholesterol 28 mg/dl; LDL Cholesterol, Calculated 114 mg/dl; Potassium 4.4 mmol/L (3.5-5.1); Sodium 136 mmol/L (135-145); Very Low Density Lipoprotein 50 mg/dl (0-30); eGFR > 60.00
[2025-04-02 05:26] VITALS: BMI 30.7
[2025-04-02 07:37] VITALS: BP 117/77
--- NOTE | 2025-04-02 09:02 | W.PN.CARDCBS ---
Addendum entered and electronically signed by Hernando Simeon MD 04/02/25 12:46:
I saw and examined the patient.
The BODY DESIGNER or PA's note was reviewed and I agree with the note.
Comment: General: Well developed, well nourished in NAD.
Neck: Supple, no JVD, HJR, carotids +2 B/L, no bruits bilaterally.
Heart: Non displaced PMI, RRR, no murmurs, No S3, S4, no rubs.
Lungs: Clear to auscultation bilaterally, no wheeze, rhonchi, rubs bilaterally,
normal expiratory phase.
Extremities: No clubbing, cyanosis or edema bilaterally.
Neuro: Grossly nonfocal, awake, alert and oriented x3.
He has spontaneously converted to sinus rhythm. Stable cardiology status for discharge. Will arrange outpatient echo. Follow-up arranged. Discussed with primary service. Will increase Coreg to 25 mg p.o. twice daily and start Eliquis
Original Note:
Today's Communication / Plan
-
Continue Eliquis 5 mg twice daily for at least 1 month
stop Cardizem gtt, increase Carvedilol to 25 mg bid
- Follow-up arranged in office for 1 month
Impression / Plan
-
PCP: Shan Sanders
Primary landscape specialist: Emiliano Soria
Impression:
Recurrent atrial fibrillation, symptomatic
- ECG demonstrates AF in [facility] ED
- [id number]: 1 (prior history of heart failure). Not on anticoagulation in outpt setting
Atrial flutter, possible, symptomatic
- telemetry demonstrates organized activity, possible AFL
Dual-chamber ICD, BS, gen change 07/2024
Ventricular tachycardia status post ablation (HUP)
Cardiomyopathy, recovered
Alcohol use/binge drinking
Previous cardiovascular testing:
Echo 10/18/2016: EF 45 to 50%, basal inferior lateral and basal inferior akinesis
Echo 10/04/2018: LVEF 50%, no regional wall motion abnormalities, normal RV, mild LVH, mild TR
Plan:
-Spontaneously converted to sinus rhythm overnight.
� Eliquis 5 mg twice daily for stroke risk reduction
� Stop Cardizem drip
� will increase Coreg to 25 mg bid
� TSH 1.76
� Discussed at length with patient regarding importance of alcohol reduction, appropriate hydration, caffeine reduction, avoidance of all nicotine products and avoidance of smoking; patient verbalized understanding and agreed with this plan
� 2D echocardiogram previously ordered pending
� Continue MANUEL inhibitor for recovered cardiomyopathy
� Monitor intake and output, daily weights
� Will likely need sleep apnea testing as outpatient
-Outpatient follow-up arranged
Progress Note - Proc Tech
Subjective
Date of Service: April 02, 2025
Converted to sinus rhythm overnight
Feels well, no palp's, lightheadedness, shortness of breath
Objective
Labs:
04/02/25 02:23
04/02/25 02:23
Labs
Hgb 16.9 g/dL (13.0-18.0) 04/02/25 02:23
Hct 49.4 % (39.0-52.0) 04/02/25 02:23
Plt Count 167 10^3/uL (130-400) 04/02/25 02:23
Sodium 136 mmol/L (135-145) 04/02/25 02:23
Potassium 4.4 mmol/L (3.5-5.1) 04/02/25 02:23
BUN 26 mg/dl (9-20) H 04/02/25 02:23
Creatinine 1.1 mg/dL (0.7-1.3) 04/02/25 02:23
Glucose 91 mg/dl (70-99) 04/02/25 02:23
Vital Signs and I&O:
Vital Signs
Temp Pulse Resp BP Pulse Ox
97.7 F 84 18 101/67 100
04/02/25 07:39 04/02/25 07:39 04/02/25 07:39 04/02/25 02:17 04/02/25 07:39
Vital Signs
Temp Pulse Resp BP Pulse Ox
97.7 F 84 18 101/67 100
04/02/25 07:39 04/02/25 07:39 04/02/25 07:39 04/02/25 02:17 04/02/25 07:39
Intake & Output
03/31/25 04/01/25 04/02/25 04/03/25
06:59 06:59 06:59 06:59
Intake Total 795 / 795
Balance 795 / 795
Physical Exam
Physical Exam
GEN: No distress, awake, Ox3
HEENT: supple, anicteric, mmm
LUNGS: CTA, no wheezes/rales
CV: Reg, S1/S2, no murmur
ABD: soft, BS+, NT/ND
EXT: No edema
NEURO: Gross non-focal
SKIN: No rash
[2025-04-02] MEDS: THERAGRAN 1 TABLET PO (09:07)
[2025-04-02] MEDS: COREG 12.5 MG PO ×2 (09:07→09:30)
[2025-04-02] MEDS: ZESTRIL 10 MG PO (09:07)
[2025-04-02] MEDS: MAGNESIUM OXIDE 400 MG PO (09:08)
[2025-04-02] MEDS: ELIQUIS 5 MG PO (09:09)
--- NOTE | 2025-04-02 09:37 | W.PN.UPDATE ---
Addendum entered and electronically signed by Candido Herrera MD 04/02/25 10:24:
No need for echo prior to discharge as per discussion with Dr. Simeon.
Original Note:
Update Note
Progress Note Update
I saw and evaluated the patient. I reviewed the resident�s note and agree with findings and plan as documented in the resident�s note.
Denies CP/SOB.
Gen: NAD, AAOx3.
Eyes: EOMI, PERRLA, no scleral icterus.
Neck: supple.
CV: RRR, +S1/S2, no m/r/g.
Resp: CTAB, no rales, wheezes, or rhonchi.
Abd: +BS, soft, NT, ND
Skin: No rashes.
Neuro: CN 2-12 intact, non-focal.
Psych: Normal mood and affect.
A. Fib with RVR
- h/o Parox Afib with hx of PPM/ICD
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
- s/p IV Cardizem push in ER, followed by Cardizem drip
- continue oral Coreg
- now on anticoagulation at present; due to chronically low Afib burden previously
- Patient has converted to sinus rhythm
- Case discussed with Dr. Simeon and the patient is medically cleared for discharge from his standpoint.
Essential HTN
-cont BB/ACEi
FULL/Lovenox
Total time spent on d/c = 31 min. This included today's physical exam, progress note, review of laboratory and diagnostic data, preparation of discharge documents and prescriptions, and discussions about the pt's hospital course and discharge plan
with the patient and other medical lab technician involved in the patient's care.
--- NOTE | 2025-04-02 09:44 | PTCARENOTE ---
received patient in bed, monitor shows NSR, VSS. Coreg given with increase dosage as ordered. IV Cardizem D/C'd as ordered. po Eliquis started as ordered.
--- NOTE | 2025-04-02 09:48 | CM ---
Reviewed chart. Met with Mr. Crum to review discharge plans. He states prior to admission he resides with his spouse in a two story home with two steps to enter. He states he has a full flight of steps to get to bedroom/full bathroom. He states
he has a powder room on the first floor. He states prior to admission he was independent with ambulation and adls. He states he does not have any DME in the home. He states he has a prescription plan and uses [facility]. Medical work-up in
progress. The discharge plan is to return home with his spouse when medically stable.
--- NOTE | 2025-04-02 10:08 | W.PN.HOSP.TC ---
Today's Communication/Plan
-
Stable for discharge
Follow up with Cardiology in 1 month
Assessment / Plan
Assessment / Plan
59 year old male with PMH of Paroxysmal Atrial Fibrillation s/p PPM/ICD, Hypertension, ED presents in the ER for palpitations, likely precipitated by alcohol consumption.
ECG showed: Afib wtih RVR
#Atrial Fibrillation with RVR
-s/p PPM/ICD
-regular HR/R today
-Cardizem drip discontinued-->increased METAL CRAFTS TEACHER carvedilol 12.5 to 25mg PO BID
-start Eliquis 5mg PO BID
-avoid alcohol
-cardiology follow up as outpatient
#Hypertension
-continue METAL CRAFTS TEACHER Lisinopril 10 PO OD
#Anxiety
-continue METAL CRAFTS TEACHER Zolpidem Tartrate
DVT prophylaxis: Eliquis
Code: Full Code
Anticipated Discharge: Today
Subjective/Interval History
-
Date of Service: April 02, 2025
This patient has no specific complaints today. He denies palpitation, chest pain, shortness of breath.
Objective Data
-
Labs:
Laboratory Results
04/02/25
02:23
WBC 6.6
Hgb 16.9
Hct 49.4
Plt Count 167
Sodium 136
Potassium 4.4
Chloride 105
Carbon Dioxide 29
BUN 26 H
Creatinine 1.1
Glucose 91
Calcium 9.0
Vital Signs:
Vital Signs
Temp Pulse Resp BP Pulse Ox
97.7 F 81 18 117/77 100
04/02/25 07:39 04/02/25 09:30 04/02/25 07:39 04/02/25 09:07 04/02/25 07:39
I&O
04/01/25 04/02/25 04/03/25
06:59 06:59 06:59
Intake Total 795 / 795
Balance 795 / 795
Review of Systems
-
History Source: Patient
Constitutional: Denies Fever or Weakness
EENT: Reports No Symptoms Reported
Respiratory: Reports No Symptoms
Cardiac: Denies Chest Pain, Palpitations or Syncope
Abdomen/GI: Denies Abdominal Pain, Nausea or Vomiting
Genitourinary: Reports No Symptoms
Musculoskeletal: Denies Edema
Neuro: Denies Lightheadedness
Physical Exam
-
General: Well Developed, Well Nourished, Comfortable and Conversant
HEENT: Normocephalic and Atraumatic
Respiratory: Clear to Auscultation
Cardiac: Regular Rhythm and S1/S2
GI: Soft, Nontender and Nondistended
Musculoskeletal: No Clubbing, No Cyanosis and No Edema
Neuro: AO x 3
[2025-04-02 10:48] VITALS: BP 117/84
--- NOTE | 2025-04-02 11:09 | PTCARENOTE ---
D/C instructions given to patient , verbalizes understanding. INT x 2 D/C'd, telemetry D/C'd, personal belongings packed and sent home with patient. D/C to home via w/c accompanied by staff.
--- NOTE | 2025-04-02 14:26 | W.DCSUMMARY ---
Discharge Summary
Discharge Data
Date of Admission: 04/01/25
Date of Discharge: 04/02/25
-
Pending Results: No
Hospital Course
Discharging Physician : Candido Herrera MD, Isabela Duong MD
Disposition : Home
Primary care physician : Shan Sanders
Principal Discharge diagnosis : Paroxysmal atrial fibrillation with a rapid ventricular response
Chronic Discharge diagnosis : Hypertension
Hospital Course : 59 year old male with PMH of Paroxysmal Atrial Fibrillation s/p PPM/ICD, Hypertension, ED presents in the ER for palpitations, likely precipitated by alcohol consumption. Patient reports that Alcohol is a known trigger for his
Atrial Fibrillation. Palpitations were present upon waking up on Tuesday morning. He reports palpitations were intermittent and went about his day/weekend including playing golf yesterday. He reports that the palpitations became increasingly
consistent and fatigue noted prompting ER evaluation.
Heart rate upon arrival in the 130s. ECG showed Atrial Fibrillation with Rapid Ventricular Response. Patient started on Cardizem drip 15 mg/hour with improvement in heart rates to 80s. The patient was admitted for further evaluation.
The following problems were addressed during this hospitalization:
#Atrial Fibrillation with Rapid Ventricular Response
s/p Permanent Pacemaker /Implantable Cardioverter Defibrillator
The patient was admitted to telemetry and placed on Cardizem drip and started on Eliquis 5 mg orally twice daily. Patient education was provided regarding alcohol reduction, adequate hydration, caffeine reduction, avoidance of all nicotine products,
and smoking cessation. A repeat ECG obtained and showed conversion to normal sinus rhythm; the patient was also noted to be asymptomatic, denying palpitations..
Home medication carvedilol dose was increased from 12.5 mg to 25 mg orally twice daily for rate control. Cardiology follow-up with Dr. Soria arranged in 1 month (2024, 9:00 am) . Outpatient sleep apnea testing is also recommended
#Hypertension
Lisinopril 10 PO OD was continued
DVT prophylaxis: Eliquis
Code: Full Code
Important imaging findings :
Procedure findings :
Discharge Plan
-
Patient Disposition: Home (Routine Discharge)
Discharge Diagnosis/Procedures: Paroxysmal atrial fibrillation with a rapid ventricular response
Condition: Good
Diet: Low Cholesterol and Low Sodium
Activity: No restrictions
Driving Restrictions: As prior to admission
Referrals:
Shan Sanders MD [Family Provider, Family Practice]
Khadijah Mercedes CRNP [Specified Professional Personl, Cardiology] - 05/09/25 9:00 am
Referral Note: You have a follow-up with Dr. Soria's nurse practitioner at the [facility]. Please call if questions.
Additional Discharge Medication Instructions: Recommend Sleep Apnea Test
Avoid Alcohol!
Prescriptions:
New
carvedilol 25 mg Tablet
25 mg PO BID Qty: 60 0RF
Eliquis 5 mg Tablet
5 mg PO BID Qty: 60 0RF
Continued
milk thistle 150 mg Capsule
300 mg PO DAILY
lisinopril 10 mg Tablet
10 mg PO DAILY
zolpidem 12.5 mg Tablet,Ext Release Multiphase
12.5 mg PO HS
magnesium oxide 400 mg magnesium Tablet
400 mg PO HS
cyanocobalamin (vitamin B-12) [Vitamin B-12] 100 mcg Tablet
100 mcg PO DAILYPRN PRN (Reason: supplement)
therapeutic multivitamin Tablet
1 tab PO DAILY
testosterone cypionate 200 mg/mL oil
200 mg SC WEEKLY
L-Arginine Men's Health 1,000 mg-16.6 mcg-66.6 mcg Tablet
1 tab PO DAILY
Discontinued
carvedilol 12.5 mg tablet
12.5 mg PO BID
Discharge Orders:
Discharge Patient (As Directed); Ordered 04/02/25
Ordered By: Candido Herrera
Care Plan Goals
Care Plan Goals:
Problem: Readiness for enhanced knowledge related to diagnosis and treatment plan
Goal: Understand your diagnosis and treatment plan needs, including medications if applicable.
Instructions: Know your diagnosis, underlying causes and treatment plan options, including medications if applicable. Consult with your health care team to learn about your diagnosis and treatment plan, including medications if applicable.
Discharge Date and Time
Discharge Date/Time: 04/02/25 11:25
Print Language: [id number]
== END 2025-04-02 11:25 | disposition home or self-care (01) | DRG 310 ==
LOC: IVU 14:46
PROVIDERS: Emergency Medicine; Registered Nurse; ADMITTING PHYSICIAN Internal Medicine; ATTENDING PHYSICIAN Internal Medicine; EMERGENCY PHYSICIAN Emergency Medicine; FAMILY PHYSICIAN Family Medicine; OTHER PHYSICIAN Internal Medicine Cardiovascular Disease
DX: I48.0 Paroxysmal atrial fibrillation (principal); I42.8 Other cardiomyopathies; I47.20 Ventricular tachycardia, unspecified; F17.200 Nicotine dependence, unspecified, uncomplicated; I48.92 Unspecified atrial flutter; I10 Essential (primary) hypertension; I44.30 Unspecified atrioventricular block; F41.9 Anxiety disorder, unspecified; Z82.49 Family history of ischemic heart disease and other diseases of the circulatory system; Z95.810 Presence of automatic (implantable) cardiac defibrillator; Z79.899 Other long term (current) drug therapy
CPT/HCPCS: 80048; 80053; 80061; 83735; 84443; 85025; 85027; 93005; 96374; 96376; 99291

== ENCOUNTER → 2025-04-24 14:34 | Outpatient (REF) | payer OTHER, SELFPAY ==
[2025-04-25 13:53] LABS: Lyme Antibody Screen, EIA Negative (Negative)
== END ==
LOC: REG 14:34
PROVIDERS: ATTENDING PHYSICIAN Nurse Practitioner Family
DX: M25.50 Pain in unspecified joint (principal)
CPT/HCPCS: 36415; 86618

== ENCOUNTER → 2025-04-25 08:02 | Outpatient (REF) | payer OTHER, SELFPAY | LOC: HWRAD 08:02 | PROVIDERS: ATTENDING PHYSICIAN Nurse Practitioner Family | DX: R42 Dizziness and giddiness (principal) | CPT/HCPCS: 70450 ==

== ENCOUNTER → 2025-05-07 06:46 | Outpatient (REF) | payer OTHER, SELFPAY | LOC: RCS 06:46 | PROVIDERS: ATTENDING PHYSICIAN Nurse Practitioner; FAMILY PHYSICIAN Family Medicine | DX: I48.0 Paroxysmal atrial fibrillation (principal) | CPT/HCPCS: 93306 ==

== ENCOUNTER → 2025-06-12 11:00 | Outpatient (REF) | payer OTHER, SELFPAY ==
[2025-06-12 12:07] LABS: Hematocrit 57.0 % (39.0-52.0); Hemoglobin 19.2 g/dL (13.0-18.0); Mean Corp Hgb Conc. 33.7 g/dL (33.0-37.0); Mean Corpuscular Volume 92.2 fL (80.0-94.0); Nucleated Red Blood Cells % 0 % (-); Platelet Count 173 10^3/uL (130-400); Red Cell Dist. Width 12.7 % (11.5-14.5)
[2025-06-12 12:45] LABS: ALT (SGPT) 41 U/L (0-50); AST (SGOT) 31 U/L (17-59); Albumin 4.6 g/dl (3.5-5.0); Alkaline Phosphatase 56 U/L (38-126); Blood Urea Nitrogen 16 mg/dl (9-20); Calcium 9.7 mg/dl (8.4-10.2); Carbon Dioxide 28 mmol/L (22-30); Chloride 99 mmol/L (98-107); Glucose 88 mg/dl (70-99); Potassium 4.4 mmol/L (3.5-5.1); Sodium 134 mmol/L (135-145); Total Protein 7.8 g/dl (6.3-8.2); eGFR > 60.00
== END ==
LOC: REG 11:00
PROVIDERS: ATTENDING PHYSICIAN Internal Medicine Endocrinology, Diabetes & Metabolism; FAMILY PHYSICIAN Nurse Practitioner Family
DX: E29.1 Testicular hypofunction (principal); E22.1 Hyperprolactinemia
CPT/HCPCS: 36415; 80053; 84146; 84270; 84402; 84403; 85025